=== PATIENT | male | born 1950 | race Caucasian/White ===

== ENCOUNTER 2017-07-15 23:38 | Observation (INO) | payer MEDICARE, OTHER ==
[~2017-07-15] VITALS: Ht 170.2 cm; Wt 91.9 kg
[~2017-07-15 23:38] MED LIST: ASPIRIN 32325 MG/TAB PO; ASPIRIN 81M81 MG/TA2 PO; BYSTOLIC5 MG PO; CALCIUM CARB500 MG PO; CEFTIN500 MG PO; CLARITIN 1010 MG/TAB PO; COLACE 100100 MG/CAP PO; DESYREL 50MG50 MG PO; EFFIENT10 MG PO; FISH OIL CONC1000 MG PO; FISH OIL CONCEN1 SG1 PO; FISH OIL CONCEN1 SG2 PO; FLOMAX 0.40.4 MG/CAP PO; FLOMAX0.4 MG PO; FLONASE NASAL S16 GM NS; IMDUR 30MG30 MG/TAB PO; IMDUR30 MG PO; LIPITOR 40MG TA40 MG PO; LIPITOR 80MG80 MG PO; LIPITOR20 MG PO; LISINOPRIL5 MG PO; MAALOX EXTRA S150 ML PO; MILK OF MA400 MG/52 PO; MULTIPLE VITAMI1 TAB PO; NIACIN500 M1 PO; NIASPAN500 MG PO; NITRO-DUR0.4 MG/PAT TD; NITROSTAT0.4 MG/TAB SL; NORVASC 10MG10 MG PO; OMEPRAZOLE20 MG PO; PERCOCET 325 MG1 TA2 PO; PRAVACHOL40 MG PO; PRIL40 PO; PRINIVIL5 MG PO; PROAIR HFA0.09 MG/AC IH; PROZAC 10MG10 MG PO; RT ADVAIR 128 DISKUS; SINGULAIR 110 MG/TAB PO; SUPER EPA 1201200 MG PO; TRILIPIX45 MG PO; TYLENOL 325MG325 MG PO; VENTOLIN0.09 MG IH; VITAMIN D 400400 IU PO; ZOCOR40 MG PO; ZOFRAN 4MG T4 MG/TAB PO; [UNRECOGNIZED DRUG - OTHER]
[2017-07-16] VITALS (19 sets, daily range): BP systolic 95–131; BP diastolic 46–76; PULSE 66–86; TEMP 97.1–99.5
[2017-07-16 00:04] LABS: BASO # 0.1 (0.0-0.2); BASO % 0.7 % (0.0-2.0); EOS # 0.2 (0.0-0.7); EOS % 2.3 % (0-4.0); GRAN # 3.9 (1.4-6.5); GRAN % 46.3 % (42.2-75.2); HEMATOCRIT 40.5 % (42.0-52.0); HEMOGLOBIN 13.5 g/dl (13.5-18.0); LYMPH # 3.2 (1.2-3.4); LYMPH % 38.1 % (20.0-51.0); MEAN CELL VOLUME 88 fl (80.0-100.0); MEAN CORPUSCULAR HEMOGLOBIN 29 pg (27.0-31.0); MEAN CORPUSCULAR HGB CONC 33 g/dl (33.0-37.0); MEAN PLATELET VOLUME 10.2 fl (7.4-10.4); MONO % 12.4 % (1.7-9.3); PLATELET COUNT 317 K/mm3 (130-400); RED BLOOD COUNT 4.59 M/mm3 (4.20-5.60); REDCELL DISTRIBUTION WIDTH-CV 13.5 % (11.5-14.5); WHITE BLOOD COUNT 8.3 K/mm3 (4.8-10.8)
[2017-07-16 00:09] LABS: INR 0.9 (0.8-3.0); PROTHROMBIN TIME 10.2 SECONDS (9.7-12.8)
[2017-07-16] MEDS ORDERED: PROZAC40 MG PO (00:11)
[2017-07-16 00:12] LABS: PARTIAL THROMBOPLASTIN TIME 26.7 SECONDS (26.0-37.0)
[2017-07-16] MEDS ORDERED: DESYREL DIVIDO150 M1 PO (00:12)
[2017-07-16 00:13] LABS: ADJUSTED CALCIUM 9.2 mg/dL (8.4-10.2); ALANINE AMINOTRANSFERASE 34 U/L (21-72); ALBUMIN 4.2 gm/dL (3.5-5.0); ALKALINE PHOSPHATASE 56 U/L (50-136); ANION GAP 10 mmol/L (7-16); BILIRUBIN,TOTAL 0.4 mg/dL (0.0-1.0); BLOOD UREA NITROGEN 14 mg/dL (9-20); CALCIUM 9.4 mg/dL (8.4-10.2); CARBON DIOXIDE 25 mmol/L (22-30); CHLORIDE 105 mmol/L (98-107); CREATININE, serum 0.98 mg/dL (0.66-1.25); GLUCOSE 89 mg/dL (74-106); LIPASE 145 U/L (23-300); POTASSIUM 3.8 mmol/L (3.4-5.0); SODIUM 140 mmol/L (137-145)
[2017-07-16 00:17] LABS: C-REACTIVE PROTEIN < 0.5 mg/dL (0.0-0.9)
[2017-07-16 00:22] LABS: B-TYPE NATRIURETIC PEPTIDE 43 pg/mL (0-125)
[2017-07-16 00:31] LABS: TROPONIN-I < 0.012 ng/mL (0.000-0.034)
[2017-07-16 07:42] LABS: CHOLESTEROL 108 mg/dL (120-200); HDL CHOLESTEROL 37 mg/dL; LDL CHOLESTEROL 52 mg/dL; TRIGLYCERIDE 95 mg/dL
[2017-07-17 04:04] VITALS: BP 110/57; PULSE 82; TEMP 99
[2017-07-17 07:23] VITALS: BP 120/58; PULSE 84; TEMP 97.9
[2017-07-17] MEDS ORDERED: COREG 3.123.125 MG/T PO (08:56)
== END 2017-07-17 13:00 | disposition home or self-care (01) ==
LOC: COL.ER 23:38 → MEDICAL 07-16 00:58
PROVIDERS: Emergency Medicine; Internal Medicine
DX: I95.9 Hypotension, unspecified (principal); I10 Essential (primary) hypertension; I08.1 Rheumatic disorders of both mitral and tricuspid valves; I25.10 Atherosclerotic heart disease of native coronary artery without angina pectoris; E78.5 Hyperlipidemia, unspecified; N40.0 Benign prostatic hyperplasia without lower urinary tract symptoms; J45.909 Unspecified asthma, uncomplicated; K21.9 Gastro-esophageal reflux disease without esophagitis; G47.33 Obstructive sleep apnea (adult) (pediatric); Z95.1 Presence of aortocoronary bypass graft; Z95.5 Presence of coronary angioplasty implant and graft; Z87.891 Personal history of nicotine dependence; Z82.3 Family history of stroke; Z82.49 Family history of ischemic heart disease and other diseases of the circulatory system; Z80.0 Family history of malignant neoplasm of digestive organs
CPT/HCPCS: 99239; C1760; C1769; C1894; G0378; J1650; J2250; J2270; J3010; J7030; Q9967

== ENCOUNTER → 2018-01-26 | Outpatient (CLI) | payer MEDICARE, OTHER ==
[~2018-01-26] MED LIST changes: +COREG 3.123.125 MG/T PO; +DESYREL DIVIDO150 M1 PO; +PROZAC40 MG PO
== END ==
LOC: COL.RAD 08:13
DX: R63.4 Abnormal weight loss (principal)
CPT/HCPCS: Q9967

== ENCOUNTER → 2018-02-02 | Outpatient (CLI) | payer MEDICARE, OTHER ==
[~2018-02-02] MED LIST changes: +DESYREL 100MG100 MG PO; +MOBIC15 MG PO; +OMEGA-3 1000 MG1 CAP PO; +PRILOSEC 20MG20 MG PO; +PROZAC 20MG20 MG PO; +RANEXA 500MG T500 MG PO; +RT ADVAIR HFA 1112 G IH; +RT SPIRIVA18 MCG IH
== END ==
LOC: COL.RAD 08:04
DX: R63.0 Anorexia (principal)
CPT/HCPCS: A9541

== ENCOUNTER 2018-02-04 14:16 | Observation (INO) | payer MEDICARE, OTHER ==
[~2018-02-04] VITALS: Ht 170.2 cm; Wt 85.0 kg
[~2018-02-04 14:16] MED LIST changes: -DESYREL 100MG100 MG PO; -MOBIC15 MG PO; -OMEGA-3 1000 MG1 CAP PO; -PRILOSEC 20MG20 MG PO; -PROZAC 20MG20 MG PO; -RANEXA 500MG T500 MG PO; -RT ADVAIR HFA 1112 G IH; -RT SPIRIVA18 MCG IH
[2018-02-04 16:45] VITALS: BP 184/96; PULSE 83
[2018-02-04] MEDS ORDERED: EFFIENT10 MG PO (17:23)
[2018-02-04 17:33] LABS: BASO # 0.1 (0.0-0.2); BASO % 0.6 % (0.0-2.0); EOS # 0.1 (0.0-0.7); EOS % 0.7 % (0-4.0); GRAN # 5.3 (1.4-6.5); GRAN % 64.3 % (42.2-75.2); HEMATOCRIT 42.9 % (42.0-52.0); HEMOGLOBIN 14.3 g/dl (13.5-18.0); LYMPH # 1.5 (1.2-3.4); LYMPH % 17.4 % (20.0-51.0); MEAN CELL VOLUME 90 fl (80.0-100.0); MEAN CORPUSCULAR HEMOGLOBIN 30 pg (27.0-31.0); MEAN CORPUSCULAR HGB CONC 33 g/dl (33.0-37.0); MEAN PLATELET VOLUME 11.1 fl (7.4-10.4); MONO # 1.4 (0.1-0.6); MONO % 16.8 % (1.7-9.3); PLATELET COUNT 222 K/mm3 (130-400); RED BLOOD COUNT 4.76 M/mm3 (4.20-5.60); REDCELL DISTRIBUTION WIDTH-CV 13.4 % (11.5-14.5)
[2018-02-04 17:38] LABS: ALANINE AMINOTRANSFERASE 37 U/L (21-72); ALBUMIN 3.8 gm/dL (3.5-5.0); ALKALINE PHOSPHATASE 62 U/L (50-136); ANION GAP 10 mmol/L (7-16); AST,SGOT 30 U/L (15-37); BILIRUBIN,TOTAL 0.3 mg/dL (0.0-1.0); BLOOD UREA NITROGEN 12 mg/dL (9-20); CALCIUM 8.9 mg/dL (8.4-10.2); CARBON DIOXIDE 27 mmol/L (22-30); CHLORIDE 104 mmol/L (98-107); CREATININE, serum 1.02 mg/dL (0.66-1.25); GLUCOSE 84 mg/dL (74-106); SODIUM 141 mmol/L (137-145); TOTAL PROTEIN 6.6 gm/dL (6.4-8.2)
[2018-02-04 17:47] LABS: PROTHROMBIN TIME 11.7 SECONDS (9.7-12.8)
[2018-02-04 17:50] LABS: PARTIAL THROMBOPLASTIN TIME 34.5 SECONDS (26.0-37.0); TROPONIN-I < 0.012 ng/mL (0.000-0.034)
[2018-02-04 20:55] VITALS: BP 139/74; PULSE 86; TEMP 100.2
[2018-02-04] MEDS ORDERED: LIPITOR 40MG TA40 MG PO (23:08)
[2018-02-04] MEDS ORDERED: FLOMAX 0.40.4 MG/CAP PO (23:09)
[2018-02-04] MEDS ORDERED: PRILOSEC 20MG20 MG PO (23:10)
[2018-02-04] MEDS ORDERED: SINGULAIR 110 MG/TAB PO (23:10)
[2018-02-04] MEDS ORDERED: MOBIC15 MG PO (23:11)
[2018-02-04] MEDS ORDERED: CLARITIN 1010 MG/TAB PO (23:11)
[2018-02-04] MEDS ORDERED: PROZAC 20MG20 MG PO (23:12)
[2018-02-04] MEDS ORDERED: RANEXA 500MG T500 MG PO (23:12)
[2018-02-04] MEDS ORDERED: ASPIRIN 81M81 MG/TA2 PO (23:13)
[2018-02-04] MEDS ORDERED: DESYREL 100MG100 MG PO (23:13)
[2018-02-04] MEDS ORDERED: OMEGA-3 1000 MG1 CAP PO (23:14)
[2018-02-04 23:37] VITALS: BP 129/58; PULSE 80; TEMP 99.9
[2018-02-05 01:20] LABS: MAGNESIUM 1.7 mg/dL (1.6-2.3)
[2018-02-05 01:28] LABS: COLLECTION METHOD CLEAN CATCH
[2018-02-05 01:39] LABS: MUCOUS Present /lpf; PH 7 (5-8); SQUAMOUS EPITHELIAL None Seen /hpf; URINE APPEARANCE Clear; URINE BACTERIA None Seen /hpf; URINE BILIRUBIN Negative (NEGATIVE); URINE BLOOD Negative (NEGATIVE); URINE COLOR Yellow; URINE GLUCOSE Negative (NEGATIVE); URINE KETONE Negative (NEGATIVE); URINE LEUKOCYTE ESTERASE Negative (NEGATIVE); URINE NITRATE Negative (NEGATIVE); URINE PROTEIN(semi-quant) Negative (NEGATIVE); URINE RBC 0-2 /hpf; URINE UROBILINOGEN Negative (NEGATIVE)
[2018-02-05] MEDS ORDERED: NITRO-DUR0.4 MG/PAT TD (01:43)
[2018-02-05] MEDS ORDERED: PRINIVIL5 MG PO (01:44)
[2018-02-05] MEDS ORDERED: RT SPIRIVA18 MCG IH (01:44)
[2018-02-05 01:51] LABS: TSH w REFLEX 1.98 uIU/mL (0.465-4.680)
[2018-02-05] MEDS ORDERED: RT ADVAIR HFA 1112 G IH (02:00)
[2018-02-05 03:25] VITALS: BP 119/62; PULSE 96; TEMP 98.9
[2018-02-05 06:38] LABS: BASO % 0.4 % (0.0-2.0); EOS % 0.6 % (0-4.0); GRAN # 2.6 (1.4-6.5); GRAN % 48.8 % (42.2-75.2); HEMATOCRIT 38.5 % (42.0-52.0); LYMPH # 1.6 (1.2-3.4); LYMPH % 30.3 % (20.0-51.0); MEAN CELL VOLUME 90 fl (80.0-100.0); MEAN CORPUSCULAR HEMOGLOBIN 30 pg (27.0-31.0); MEAN CORPUSCULAR HGB CONC 34 g/dl (33.0-37.0); MEAN PLATELET VOLUME 11.1 fl (7.4-10.4); MONO # 1.1 (0.1-0.6); MONO % 19.7 % (1.7-9.3); PLATELET COUNT 217 K/mm3 (130-400); REDCELL DISTRIBUTION WIDTH-CV 13.5 % (11.5-14.5)
[2018-02-05 06:55] LABS: CALCIUM 8.3 mg/dL (8.4-10.2); CREATININE, serum 0.91 mg/dL (0.66-1.25); POTASSIUM 3.2 mmol/L (3.4-5.0)
[2018-02-05 07:40] VITALS: BP 129/56; PULSE 93; TEMP 98.8
[2018-02-05 11:20] VITALS: BP 100/56; PULSE 78; TEMP 98.9
[2018-02-05] MEDS ORDERED: TAMIFLU 75MG75 MG PO (12:24)
[2018-02-05 16:00] VITALS: BP 104/50; PULSE 93; TEMP 98.7
== END 2018-02-05 17:43 | disposition home or self-care (01) ==
LOC: COL.ER 14:16 → MEDICAL 19:13
PROVIDERS: Emergency Medicine; Family Medicine; Nurse Practitioner Family
DX: R55 Syncope and collapse (principal); I95.1 Orthostatic hypotension; J11.1 Influenza due to unidentified influenza virus with other respiratory manifestations; E87.6 Hypokalemia; I25.10 Atherosclerotic heart disease of native coronary artery without angina pectoris; N40.0 Benign prostatic hyperplasia without lower urinary tract symptoms; K21.9 Gastro-esophageal reflux disease without esophagitis; G47.33 Obstructive sleep apnea (adult) (pediatric); J44.9 Chronic obstructive pulmonary disease, unspecified; J98.11 Atelectasis; Z95.1 Presence of aortocoronary bypass graft; Z95.5 Presence of coronary angioplasty implant and graft; Z79.82 Long term (current) use of aspirin; Z79.51 Long term (current) use of inhaled steroids; Z87.891 Personal history of nicotine dependence; Z82.49 Family history of ischemic heart disease and other diseases of the circulatory system; Z80.0 Family history of malignant neoplasm of digestive organs; Z82.3 Family history of stroke
CPT/HCPCS: A9585; G0378; J3475; J7030; Q9967

== ENCOUNTER → 2018-02-18 | Outpatient (CLI) | payer MEDICARE, OTHER ==
[~2018-02-18] MED LIST changes: +DESYREL 100MG100 MG PO; +MOBIC15 MG PO; +OMEGA-3 1000 MG1 CAP PO; +PRILOSEC 20MG20 MG PO; +PROZAC 20MG20 MG PO; +RANEXA 500MG T500 MG PO; +RT ADVAIR HFA 1112 G IH; +RT SPIRIVA18 MCG IH; +TAMIFLU 75MG75 MG PO
== END ==
LOC: COL.CARD 09:11
DX: R55 Syncope and collapse (principal); R51 Headache

== ENCOUNTER 2018-07-06 14:06 | Observation (INO) | payer MEDICARE, OTHER ==
[2018-07-06] VITALS (410 sets, daily range): BP systolic 136–148; BP diastolic 82; PULSE 66–71; TEMP 97.8–98; O2SAT 68–100
[~2018-07-06] VITALS: Ht 167.6 cm; Wt 84.9 kg
[~2018-07-06 14:06] MED LIST changes: +BENTYL 10MG10 MG/CAP PO; +MAG-OX 400400 MG/TAB PO; +MULTIPLE VITAMI1 TA5 PO; -PROZAC 20MG20 MG PO; +RT ADVAIR HFA 412 GM IH; -RT SPIRIVA18 MCG IH; +SPIRIVA RE2.5 MCG/Ac IH; +VOLTAREN GEL 1%1 TU TP; +ZORVOLEX18 MG; +[UNRECOGNIZED DRUG - OTHER] PO
[2018-07-06 14:24] LABS: BASO # 0.1 (0.0-0.2); BASO % 0.7 % (0.0-2.0); EOS # 0.2 (0.0-0.7); EOS % 2.3 % (0-4.0); GRAN # 3.7 (1.4-6.5); GRAN % 49.9 % (42.2-75.2); HEMATOCRIT 38.3 % (42.0-52.0); HEMOGLOBIN 12.9 g/dl (13.5-18.0); LYMPH # 2.6 (1.2-3.4); LYMPH % 35.5 % (20.0-51.0); MEAN CELL VOLUME 89 fl (80.0-100.0); MEAN CORPUSCULAR HEMOGLOBIN 30 pg (27.0-31.0); MEAN CORPUSCULAR HGB CONC 34 g/dl (33.0-37.0); MONO # 0.8 (0.1-0.6); MONO % 11.2 % (1.7-9.3); PLATELET COUNT 300 K/mm3 (130-400); REDCELL DISTRIBUTION WIDTH-CV 13.1 % (11.5-14.5)
[2018-07-06 14:28] LABS: PROTHROMBIN TIME 10.9 SECONDS (9.7-12.8)
[2018-07-06 14:39] LABS: ALANINE AMINOTRANSFERASE 32 U/L (21-72); ALBUMIN 3.9 gm/dL (3.5-5.0); ALKALINE PHOSPHATASE 49 U/L (50-136); ANION GAP 11 mmol/L (7-16); AST,SGOT 28 U/L (15-37); BILIRUBIN,TOTAL 0.7 mg/dL (0.0-1.0); BLOOD UREA NITROGEN 15 mg/dL (9-20); CALCIUM 9.2 mg/dL (8.4-10.2); CARBON DIOXIDE 25 mmol/L (22-30); CHLORIDE 104 mmol/L (98-107); CREATININE, serum 0.93 mg/dL (0.66-1.25); GLUCOSE 99 mg/dL (74-106); SODIUM 139 mmol/L (137-145); TOTAL PROTEIN 6.7 gm/dL (6.4-8.2)
[2018-07-06 14:51] LABS: TROPONIN-I < 0.012 ng/mL (0.000-0.034)
[2018-07-06] MEDS ORDERED: SINGULAIR 110 MG/TAB PO (18:14)
[2018-07-06] MEDS ORDERED: NORVASC2.5 MG PO (18:14)
[2018-07-06] MEDS ORDERED: DESYREL 100MG100 MG PO (18:17)
[2018-07-06] MEDS ORDERED: RT ADVAIR HFA 1112 G IH (20:50)
[2018-07-06] MEDS ORDERED: PROAIR HFA0.09 MG/AC IH (21:04)
[2018-07-06] MEDS ORDERED: TRILIPIX45 MG PO (21:09)
[2018-07-06] MEDS ORDERED: NATURAL IRON65 MG PO (21:11)
[2018-07-06] MEDS ORDERED: FLONASEALLERGY NS (21:14)
[2018-07-06] MEDS ORDERED: NIACIN 64 MG-501 TA1 PO (21:18)
[2018-07-07] VITALS (710 sets, daily range): BP systolic 95–136; BP diastolic 57–69; PULSE 58–67; TEMP 97.7–98.5; O2SAT 73–100
[2018-07-07 03:25] LABS: CHOLESTEROL 96 mg/dL (120-200); CHOLESTEROL RISK RATIO 3.2; HDL CHOLESTEROL 30 mg/dL; LDL CHOLESTEROL 48 mg/dL; TRIGLYCERIDE 92 mg/dL
[2018-07-07 03:42] LABS: TROPONIN-I < 0.012 ng/mL (0.000-0.034)
[2018-07-07] MEDS ORDERED: RANEXA 500MG T500 MG PO (14:19)
== END 2018-07-07 15:00 | disposition home or self-care (01) ==
LOC: COL.ER 14:06 → ICU 14:59
PROVIDERS: Family Medicine; Physician Assistant
DX: R07.9 Chest pain, unspecified (principal); I25.110 Atherosclerotic heart disease of native coronary artery with unstable angina pectoris; Z95.1 Presence of aortocoronary bypass graft; Z95.5 Presence of coronary angioplasty implant and graft; I10 Essential (primary) hypertension; E78.5 Hyperlipidemia, unspecified; R73.03 Prediabetes; F32.9 Major depressive disorder, single episode, unspecified; F41.9 Anxiety disorder, unspecified; J44.9 Chronic obstructive pulmonary disease, unspecified; G47.33 Obstructive sleep apnea (adult) (pediatric); K21.9 Gastro-esophageal reflux disease without esophagitis; N40.1 Benign prostatic hyperplasia with lower urinary tract symptoms; Z79.82 Long term (current) use of aspirin; Z87.891 Personal history of nicotine dependence
CPT/HCPCS: 99223-AI; 99232-AI; J1644; J7030

== ENCOUNTER 2018-11-16 10:49 | Inpatient (IN) | payer MEDICARE, OTHER ==
[~2018-11-16] VITALS: Ht 317.5 cm; Wt 82.7 kg
[~2018-11-16 10:49] MED LIST changes: +FLONASEALLERGY NS; +NATURAL IRON65 MG PO; +NIACIN 64 MG-501 TA1 PO; +NORVASC2.5 MG PO
[2018-11-16 11:41] LABS: BASO % 0.4 % (0.0-2.0); EOS # 0.2 (0.0-0.7); EOS % 1.9 % (0-4.0); GRAN # 6.3 (1.4-6.5); GRAN % 68.9 % (42.2-75.2); HEMATOCRIT 39.9 % (42.0-52.0); HEMOGLOBIN 13.8 g/dl (13.5-18.0); LYMPH # 1.6 (1.2-3.4); LYMPH % 17.4 % (20.0-51.0); MEAN CELL VOLUME 89 fl (80.0-100.0); MEAN CORPUSCULAR HEMOGLOBIN 31 pg (27.0-31.0); MEAN CORPUSCULAR HGB CONC 35 g/dl (33.0-37.0); MEAN PLATELET VOLUME 10.4 fl (7.4-10.4); MONO % 11.1 % (1.7-9.3); PLATELET COUNT 285 K/mm3 (130-400); RED BLOOD COUNT 4.47 M/mm3 (4.20-5.60); REDCELL DISTRIBUTION WIDTH-CV 12.8 % (11.5-14.5)
[2018-11-16 13:31] LABS: ALANINE AMINOTRANSFERASE 28 U/L (21-72); ALBUMIN 3.3 gm/dL (3.5-5.0); ALKALINE PHOSPHATASE 53 U/L (50-136); ANION GAP 4 mmol/L (7-16); AST,SGOT 43 U/L (15-37); BILIRUBIN,TOTAL 0.6 mg/dL (0.0-1.0); BLOOD UREA NITROGEN 19 mg/dL (9-20); CALCIUM 8.8 mg/dL (8.4-10.2); CARBON DIOXIDE 27 mmol/L (22-30); CHLORIDE 111 mmol/L (98-107); CREATININE, serum 0.97 mg/dL (0.66-1.25); GLUCOSE 94 mg/dL (74-106); POTASSIUM 4.3 mmol/L (3.4-5.0); SODIUM 142 mmol/L (137-145)
[2018-11-16 13:43] LABS: TROPONIN-I < 0.012 ng/mL (0.000-0.034)
[2018-11-16 16:50] VITALS: BP 155/73; PULSE 68; TEMP 97.9
[2018-11-16 16:51] VITALS: BP 143/73; PULSE 71
[2018-11-16 16:53] VITALS: BP 151/79; PULSE 75
[2018-11-16 17:43] LABS: PARTIAL THROMBOPLASTIN TIME 39.3 SECONDS (26.0-37.0)
[2018-11-16 17:55] LABS: MAGNESIUM 1.9 mg/dL (1.6-2.3)
[2018-11-16 18:18] LABS: TROPONIN-I 3 HR POST INITIAL < 0.012 ng/mL (0.000-0.034)
[2018-11-16 21:13] LABS: COLLECTION METHOD CLEAN CATCH
[2018-11-16 21:16] VITALS: BP 143/63; PULSE 73; TEMP 98.1
[2018-11-16 21:18] LABS: MUCOUS Present /lpf; PH 7 (5-8); SQUAMOUS EPITHELIAL None Seen /hpf; URINE APPEARANCE Clear; URINE BACTERIA None Seen /hpf; URINE BILIRUBIN Negative (NEGATIVE); URINE BLOOD Negative (NEGATIVE); URINE COLOR Yellow; URINE GLUCOSE 1+ (NEGATIVE); URINE KETONE Negative (NEGATIVE); URINE LEUKOCYTE ESTERASE Negative (NEGATIVE); URINE NITRATE Negative (NEGATIVE); URINE PROTEIN(semi-quant) Negative (NEGATIVE); URINE RBC 0-2 /hpf; URINE UROBILINOGEN Negative (NEGATIVE)
[2018-11-17] VITALS (7 sets, daily range): BP systolic 116–131; BP diastolic 50–76; PULSE 64–92; TEMP 98–98.5
[2018-11-17 07:27] LABS: BASO % 0.4 % (0.0-2.0); EOS # 0.1 (0.0-0.7); EOS % 1.7 % (0-4.0); GRAN # 4.4 (1.4-6.5); GRAN % 57.1 % (42.2-75.2); HEMATOCRIT 41.7 % (42.0-52.0); HEMOGLOBIN 14.1 g/dl (13.5-18.0); LYMPH # 2.3 (1.2-3.4); LYMPH % 29.2 % (20.0-51.0); MEAN CELL VOLUME 90 fl (80.0-100.0); MEAN CORPUSCULAR HEMOGLOBIN 30 pg (27.0-31.0); MEAN CORPUSCULAR HGB CONC 34 g/dl (33.0-37.0); MEAN PLATELET VOLUME 10.4 fl (7.4-10.4); MONO # 0.9 (0.1-0.6); MONO % 11.3 % (1.7-9.3); PLATELET COUNT 292 K/mm3 (130-400); RED BLOOD COUNT 4.66 M/mm3 (4.20-5.60)
[2018-11-17 07:41] LABS: ANION GAP 4 mmol/L (7-16); BLOOD UREA NITROGEN 13 mg/dL (9-20); CALCIUM 9.3 mg/dL (8.4-10.2); CARBON DIOXIDE 29 mmol/L (22-30); CHLORIDE 107 mmol/L (98-107); CREATININE, serum 1.04 mg/dL (0.66-1.25); GLUCOSE 98 mg/dL (74-106); SODIUM 140 mmol/L (137-145)
[2018-11-17 08:00] LABS: TROPONIN-I < 0.012 ng/mL (0.000-0.034)
[2018-11-18] VITALS (8 sets, daily range): BP systolic 120–149; BP diastolic 66–78; PULSE 63–85; TEMP 97.4–98.2
[2018-11-18] MEDS ORDERED: CEPHALEXIN500 M1 PO (12:21)
== END 2018-11-18 15:49 | disposition home or self-care (01) | DRG 262 ==
LOC: COL.ER 10:49 → MEDICAL 13:11
PROVIDERS: Emergency Medicine; Physician Assistant
PROC: 0JH602Z Insertion of Monitoring Device into Chest Subcutaneous Tissue and Fascia, Open Approach (ICD-10-PCS; principal; 2018-11-17)
DX: R55 Syncope and collapse (principal); R00.1 Bradycardia, unspecified; I25.10 Atherosclerotic heart disease of native coronary artery without angina pectoris; I10 Essential (primary) hypertension; Z87.891 Personal history of nicotine dependence; Z95.5 Presence of coronary angioplasty implant and graft; Z95.1 Presence of aortocoronary bypass graft; E78.5 Hyperlipidemia, unspecified; J44.9 Chronic obstructive pulmonary disease, unspecified; R73.03 Prediabetes; F41.8 Other specified anxiety disorders
CPT/HCPCS: OP; 99222-AI; 99232-AI; A9502; G0378; J1650; J2785; J7030

== ENCOUNTER → 2019-02-04 | Outpatient (CLI) | payer MEDICARE, OTHER ==
[~2019-02-04] MED LIST changes: +CEPHALEXIN500 M1 PO
== END ==
LOC: COL.RAD 14:20
DX: R41.3 Other amnesia (principal); R93.0 Abnormal findings on diagnostic imaging of skull and head, not elsewhere classified
CPT/HCPCS: A9585

== ENCOUNTER 2019-07-18 08:15 | Outpatient (RCR) | payer MEDICARE, OTHER ==
[~2019-07-18 08:15] MED LIST changes: +ARICEPT10 MG PO; +FLEXERIL 1010 MG/TAB PO; +REMERON 15M15 MG/TA1 PO; +REQUIP 0.5MG0.5 MG PO; +RT ADVAIR HFA 2312 G IH; +VITAMIN C500 MG PO; +ZYRTEC 10MG10 MG PO
== END 2019-08-11 | disposition home or self-care (01) ==
LOC: WSST
DX: M25.561 Pain in right knee (principal); M25.562 Pain in left knee; G89.29 Other chronic pain; R13.10 Dysphagia, unspecified; K21.9 Gastro-esophageal reflux disease without esophagitis; K44.9 Diaphragmatic hernia without obstruction or gangrene; E78.5 Hyperlipidemia, unspecified; Z77.090 Contact with and (suspected) exposure to asbestos; J45.40 Moderate persistent asthma, uncomplicated; G47.33 Obstructive sleep apnea (adult) (pediatric); R73.03 Prediabetes; E66.9 Obesity, unspecified

== ENCOUNTER → 2019-07-25 | Outpatient (CLI) | payer MEDICARE, OTHER | LOC: COL.RAD 08:10 | DX: K21.9 Gastro-esophageal reflux disease without esophagitis (principal) ==

== ENCOUNTER → 2019-11-24 | Outpatient (CLI) | payer MEDICARE, OTHER | LOC: COL.CARD 12:18 | DX: R42 Dizziness and giddiness (principal); R55 Syncope and collapse; F03.90 Unspecified dementia, unspecified severity, without behavioral disturbance, psychotic disturbance, mood disturbance, and anxiety ==

== ENCOUNTER 2020-01-24 06:54 | Day surgery (SDC) | payer MEDICARE, OTHER ==
[~2020-01-24] VITALS: Ht 167.6 cm; Wt 85.6 kg
[2020-01-24 07:20] VITALS: BP 125/69; PULSE 75; TEMP 97.4
[2020-01-24] MEDS ORDERED: ZESTRIL2.5 MG PO (07:38)
[2020-01-24] MEDS ORDERED: MOBIC15 MG PO (07:38)
[2020-01-24] MEDS ORDERED: ZYRTEC5 MG PO (07:39)
[2020-01-24] MEDS ORDERED: PROZAC60 MG PO (07:40)
[2020-01-24] MEDS ORDERED: ARICEPT10 MG PO (07:42)
[2020-01-24] MEDS ORDERED: NORVASC2.5 MG PO (07:43)
[2020-01-24] MEDS ORDERED: REMERON30 MG PO (07:45)
[2020-01-24] MEDS ORDERED: ANTIVERT 25MG25 MG PO (07:49)
[2020-01-24] MEDS ORDERED: URINOZINC PO (07:51)
[2020-01-24] MEDS ORDERED: MULTIPLE VITAMI1 CAP PO (07:51)
[2020-01-24] MEDS ORDERED: OMEGA-3 1000 MG1 CAP PO (07:51)
[2020-01-24] MEDS ORDERED: VITAMIN C500 MG PO (07:52)
[2020-01-24] MEDS ORDERED: NITROSTAT0.4 MG/TAB SL (07:57)
[2020-01-24] MEDS ORDERED: PRILOSEC 20MG20 MG PO (09:10)
[2020-01-24 09:20] VITALS: BP 110/67; PULSE 60; TEMP 97.6
--- NOTE | 2020-01-24 09:20 | NUR ---
Pt returns from endo procedure via cart. Pt ambulates from cart to recliner with RN assist. Monitors on and alarms set. Call light within reach. Pt requesting water. present in room. Pt denies pain or nausea. Pt drowsy but answers all questions appropriately.
[2020-01-24 09:40] VITALS: BP 125/70; PULSE 60
--- NOTE | 2020-01-24 09:40 | NUR ---
Pt more awake now and taking drink well. Pt voices no complications.
[2020-01-24 10:00] VITALS: BP 136/70; PULSE 63
[2020-01-24 10:15] VITALS: BP 136/70; PULSE 67
--- NOTE | 2020-01-24 10:23 | NUR ---
Discharge instructions given to patient and . All questions answered to their satisfaction. Handed to patient are a thank you card, discharge instructions, diagnosis information, procedural photos, and a discharge medication list.
--- NOTE | 2020-01-24 10:30 | NUR ---
Pt transferred out of hospital via wheelchair and AJ Anand assist, to private vehicle driven by .
--- NOTE | 2020-01-24 10:57 | NUR ---
Initial visit; Patient and his thanked Assisted Living Coordinator for offering spiritual care, especially prayer prior to his 'Procedure.'
== END 2020-01-24 10:30 | disposition home or self-care (01) ==
LOC: SDCO 06:54
DX: K62.5 Hemorrhage of anus and rectum (principal); D64.9 Anemia, unspecified; K57.30 Diverticulosis of large intestine without perforation or abscess without bleeding; K64.0 First degree hemorrhoids; Z86.010 Personal history of colon polyps; K21.9 Gastro-esophageal reflux disease without esophagitis; K29.30 Chronic superficial gastritis without bleeding; K26.7 Chronic duodenal ulcer without hemorrhage or perforation; K44.9 Diaphragmatic hernia without obstruction or gangrene; K29.60 Other gastritis without bleeding; K29.80 Duodenitis without bleeding; K26.9 Duodenal ulcer, unspecified as acute or chronic, without hemorrhage or perforation; I25.119 Atherosclerotic heart disease of native coronary artery with unspecified angina pectoris; F32.9 Major depressive disorder, single episode, unspecified; N40.0 Benign prostatic hyperplasia without lower urinary tract symptoms; J45.909 Unspecified asthma, uncomplicated; G47.33 Obstructive sleep apnea (adult) (pediatric); Z87.891 Personal history of nicotine dependence
CPT/HCPCS: J2704; J7120

== ENCOUNTER 2020-09-09 23:59 | Inpatient (IN) | payer MEDICARE, OTHER ==
[~2020-09-09] VITALS: Ht 167.6 cm; Wt 79.3 kg
[~2020-09-09 23:59] MED LIST changes: +ANTIVERT 25MG25 MG PO; +MULTIPLE VITAMI1 CAP PO; +PROZAC60 MG PO; +REMERON30 MG PO; +URINOZINC PO; +ZESTRIL2.5 MG PO; +ZYRTEC5 MG PO
[2020-09-10] VITALS (11 sets, daily range): BP systolic 118–149; BP diastolic 52–75; PULSE 60–72; TEMP 97.7–98.6
[2020-09-10 00:10] LABS: BASO # 0.1 (0.0-0.2); BASO % 0.7 % (0.0-2.0); EOS # 0.1 (0.0-0.7); EOS % 1.4 % (0-4.0); GRAN # 5.8 (1.4-6.5); GRAN % 70.2 % (42.2-75.2); LYMPH # 1.5 (1.2-3.4); LYMPH % 18.3 % (20.0-51.0); MEAN CELL VOLUME 86 fl (80.0-100.0); MEAN CORPUSCULAR HGB CONC 31 g/dl (33.0-37.0); MEAN PLATELET VOLUME 10.2 fl (7.4-10.4); MONO # 0.8 (0.1-0.6); PLATELET COUNT 400 K/mm3 (130-400); REDCELL DISTRIBUTION WIDTH-CV 17.5 % (11.5-14.5)
[2020-09-10 00:11] LABS: HEMATOCRIT 30.2 % (42.0-52.0); HEMOGLOBIN 9.3 g/dl (13.5-18.0); MEAN CORPUSCULAR HEMOGLOBIN 27 pg (27.0-31.0)
[2020-09-10 00:12] LABS: PROTHROMBIN TIME 11.6 SECONDS (9.7-12.8)
[2020-09-10 00:14] LABS: PARTIAL THROMBOPLASTIN TIME 26.5 SECONDS (26.0-37.0)
[2020-09-10 00:17] LABS: ALANINE AMINOTRANSFERASE 16 U/L (4-49); ALBUMIN 3.7 gm/dL (3.5-5.0); ALKALINE PHOSPHATASE 86 U/L (50-136); ANION GAP 7 mmol/L (7-16); AST,SGOT 25 U/L (15-37); BILIRUBIN,TOTAL 0.4 mg/dL (0.0-1.0); BLOOD UREA NITROGEN 24 mg/dL (9-20); CALCIUM 8.3 mg/dL (8.4-10.2); CARBON DIOXIDE 25 mmol/L (22-30); CHLORIDE 107 mmol/L (98-107); CREATININE, serum 1.43 (0.66-1.25); GLUCOSE 130 mg/dL (74-106); MAGNESIUM 2.5 mg/dL (1.6-2.3); POTASSIUM 4.2 mmol/L (3.4-5.0); SODIUM 138 mmol/L (137-145); TOTAL PROTEIN 6.5 gm/dL (6.4-8.2)
[2020-09-10 00:29] LABS: TROPONIN-I < 0.012 ng/mL (0.000-0.035)
[2020-09-10] MEDS ORDERED: TRELEGY ELLIPT1 EACH IH (01:29)
--- NOTE | 2020-09-10 01:57 | NUR ---
PT ARRIVES TO ROOM 345 VIA W/C FROM ED. IS ALERT AND ORIENTED X4. HAS SL TO RIGHT AC. TELEMETRY ON. ASSISTED TO BED WITH STANDBY. WILL BE FALL PRECAUTIONS D/T SYNCOPAL EPISODES X2 AT HOME AND POSITIVE ORTHOSTATICS.
--- NOTE | 2020-09-10 02:30 | NUR ---
IVF INFUSING TO RIGHT AC WITHOUT REDNESS OR SWELLING. IS NPO.
--- NOTE | 2020-09-10 05:45 | NUR ---
PT HAS HAD NO STOOLS THIS SHIFT. REMAINS NPO.
[2020-09-10 06:51] LABS: RETIC # 0.07 M/mm3 (0.02-0.16); RETIC % 2.1 % (0.5-3.52)
[2020-09-10 06:52] LABS: HEMATOCRIT 30.2 % (42.0-52.0); HEMOGLOBIN 9.4 g/dl (13.5-18.0)
[2020-09-10 07:05] LABS: ANION GAP 5 mmol/L (7-16); BLOOD UREA NITROGEN 25 mg/dL (9-20); CALCIUM 8.5 mg/dL (8.4-10.2); CARBON DIOXIDE 24 mmol/L (22-30); CHLORIDE 109 mmol/L (98-107); CREATININE, serum 1.48 (0.66-1.25); GLUCOSE 99 mg/dL (74-106); POTASSIUM 4.3 mmol/L (3.4-5.0); SODIUM 139 mmol/L (137-145)
[2020-09-10 07:17] LABS: TROPONIN-I 6 HR POST INITIAL < 0.012 ng/mL (0.000-0.034)
[2020-09-10 07:34] LABS: TSH w REFLEX 0.984 uIU/mL (0.465-4.680)
--- NOTE | 2020-09-10 07:53 | NUR ---
Patient down by prasad for endoscopy
[2020-09-10 07:54] LABS: IRON,SERUM 21 ug/dL (35-150)
[2020-09-10 08:03] LABS: TOTAL IRON BINDING CAPACITY 328 ug/dL (261-462)
--- NOTE | 2020-09-10 08:44 | NUR ---
Patient up from endoscopy, alert and oriented x 2. Assessment complete. VSS. Post op fluids infusing per orders. Denies pain at this time. Denies further needs at this time. States he has not had a BM since being admitted to the hospital. Denies further needs at this time.
--- NOTE | 2020-09-10 10:57 | NUR ---
SW met with the patient to discuss discharge plan. The patient lives in [place] with his , Hiren (ph#[phone]). He reports independence with ADLs and does not have any DME. The patient's PCP is Dr. Venecia Hinson and he receives his medications at [facility], and through [facility]. He reports no difficulties obtaining his meds. The patient does not have a DPOA-HC in EMR, but he states that he believes he has one completed and that his is his DPOA-HC. The patient plans to return home with his upon discharge. SW contacted the patient's , Hiren, to review d/c plan. Hiren reports that she has no concerns about the patient returning back home with her upon discharge. She just wants to have figured out why the patient keeps having syncopal episodes. SW to continue to follow as needed.
--- NOTE | 2020-09-10 11:13 | NUR ---
First visit from the breakfast cook. No needs right now.
[2020-09-10 17:31] LABS: FOLATE (FOLIC ACID) 15.5 ng/mL (7.0-31.4)
[2020-09-10 17:39] LABS: HEMATOCRIT 29.1 % (42.0-52.0)
--- NOTE | 2020-09-10 18:47 | NUR ---
Patient has done well throughout the day. Has been up ambulating in room, up to recliner throughout the day. Denies pain through the day. Patient states he has had dark bloody stools today, educated patient to allow staff to visualize before flushing. Tolerating diet without complications. Denies further needs at this time. Will report off to shift production associate.
--- NOTE | 2020-09-10 19:05 | NUR ---
Received report from AJ Pichardo. Pt has his call light within reach.
[2020-09-11 04:17] VITALS: BP 122/65; PULSE 64; TEMP 98.1
--- NOTE | 2020-09-11 06:26 | NUR ---
Pt has slept well all night. Pt did tell me this morning that he went to the bathroom and had a bowel movement that was dark. Pt has been tolerating fluids throughout the night. I did contact Nina the hospitalist at the beginning of the shift because the pt was INt'ed. She was ok with pt being INT and order was placed at this time. Pt has his call light within reach.
--- NOTE | 2020-09-11 07:22 | NUR ---
Dr. Luis in to see patient.
[2020-09-11 07:24] LABS: HEMATOCRIT 28.6 % (42.0-52.0)
[2020-09-11 07:35] VITALS: BP 142/70; PULSE 57; TEMP 98.6
[2020-09-11 07:35] LABS: CALCIUM 8.6 mg/dL (8.4-10.2); CREATININE, serum 1.42 (0.66-1.25); MAGNESIUM 2.3 mg/dL (1.6-2.3); POTASSIUM 4.2 mmol/L (3.4-5.0)
--- NOTE | 2020-09-11 08:00 | NUR ---
Patient in bed resting. Alert and oriented x 3. Assessment complete. Denies pain at this time. Patient states he has a couple of dark bloody stools throughout the night. Denies further needs at this time.
[2020-09-11 11:43] VITALS: BP 111/62; PULSE 71; TEMP 98.1
[2020-09-11 15:50] VITALS: BP 136/63; PULSE 57; TEMP 97.5
[2020-09-11 16:15] LABS: HEMATOCRIT 31.4 % (42.0-52.0); HEMOGLOBIN 9.8 g/dl (13.5-18.0)
--- NOTE | 2020-09-11 16:41 | NUR ---
Contacted hospitalist, patient has elevated D-dimer. Verified new medication orders.
--- NOTE | 2020-09-11 18:15 | NUR ---
Patient doing well, minimal needs. Has been up ambulating in room throughout the day. Showered independently this AM. Fluids restarted per orders. Patient denies further needs at this time. Will report off to evening or night nurse supervisor.
[2020-09-11 19:20] VITALS: BP 111/59; PULSE 64; TEMP 98.1
--- NOTE | 2020-09-11 20:00 | NUR ---
PT IN BED. IS ALERT AND ORIENTED X4. HAS IVF INFUSING TO RIGHT AC WITHOUT REDNESS OR SWELLING. DENIES PAIN. VOIDING WITHOUT PROBLEM, YELLOW URINE. TAKES HS MEDS. PUDDING PROVIDED.
[2020-09-11 23:44] VITALS: BP 131/64; PULSE 65; TEMP 98.5
--- NOTE | 2020-09-12 02:39 | NUR ---
PT IV CONTINUED TO OCCLUDE, LEAKING. NEW IV SITE TO RIGHT WRIST PLACED, #20 INSYTE ON SECOND ATTEMPT. TOLERATED WITHOUT PROBLEM. REMOVED SL FROM RIGHT AC, ANGIOCATH INTACT.
[2020-09-12 04:00] VITALS: BP 133/66; PULSE 62; TEMP 97.6
--- NOTE | 2020-09-12 05:40 | NUR ---
TAKES AM MED. DENIES ANY STOOLS THIS SHIFT.
--- NOTE | 2020-09-12 05:42 | NUR ---
TELE CALLED, PT HR DROPPED TO 38 BPM THEN BACK UP TO 50-60'S. WOKE PT UP, DENIES CHEST PAIN, REPORTS HIS LOOP RECORDER HAS PICKED UP LOW RATES IN THE 30'S AT HOME.
[2020-09-12 06:47] LABS: BASO # 0.1 (0.0-0.2); BASO % 0.9 % (0.0-2.0); EOS # 0.3 (0.0-0.7); EOS % 4.2 % (0-4.0); GRAN # 3.2 (1.4-6.5); GRAN % 49.4 % (42.2-75.2); LYMPH # 2.2 (1.2-3.4); LYMPH % 33.8 % (20.0-51.0); MEAN CELL VOLUME 87 fl (80.0-100.0); MEAN CORPUSCULAR HEMOGLOBIN 27 pg (27.0-31.0); MEAN CORPUSCULAR HGB CONC 31 g/dl (33.0-37.0); MEAN PLATELET VOLUME 10.6 fl (7.4-10.4); MONO # 0.8 (0.1-0.6); MONO % 11.5 % (1.7-9.3); PLATELET COUNT 379 K/mm3 (130-400); RED BLOOD COUNT 3.68 M/mm3 (4.20-5.60); REDCELL DISTRIBUTION WIDTH-CV 17.2 % (11.5-14.5)
[2020-09-12 07:03] LABS: CALCIUM 8.8 mg/dL (8.4-10.2); CREATININE, serum 1.3 (0.66-1.25)
[2020-09-12 07:54] VITALS: BP 131/60; PULSE 63; TEMP 97.8
--- NOTE | 2020-09-12 09:32 | NUR ---
Patient resting in bed. He had a shower this morning. Only complaint is that he feels tired this morning.
[2020-09-12] MEDS ORDERED: LIPITOR 80MG80 MG PO (10:18)
[2020-09-12] MEDS ORDERED: PROTONIX 40MG T40 MG PO (10:22)
[2020-09-12] MEDS ORDERED: CARAFATE 1GM1 G PO (10:22)
[2020-09-12] MEDS ORDERED: FLORINEF ACETA0.1 MG PO (10:22)
--- NOTE | 2020-09-12 12:49 | NUR ---
Patient to take patient home. Discharge orders obtained. Patient given all discharge teaching. Int DC. We reviewed new medication to sweet pickled fruit maker at [facility] pharmacy. We reviewed lase dose take & medication to no longer take. he veriifed understanding.We discussed follow up appt scheduled with PCP & cardiology. Voicemail left with Neuro office. Patient has lunch did well. He took a shower this am & ambulated halls with therapy without problems. Patietn wheeled out with all belongings, denies questions or concerns.
== END 2020-09-12 12:10 | disposition home or self-care (01) | DRG 378 ==
LOC: COL.ER 23:59 → SURG 09-10 00:53
PROVIDERS: Emergency Medicine; Internal Medicine Gastroenterology; Physician Assistant; Student in an Organized Health Care Education/Training Program; ADMIT Internal Medicine
PROC: 0DB78ZX Excision of Stomach, Pylorus, Via Natural or Artificial Opening Endoscopic, Diagnostic (ICD-10-PCS; principal; 2020-09-10 07:30)
DX: K29.01 Acute gastritis with bleeding (principal); N17.9 Acute kidney failure, unspecified; K92.2 Gastrointestinal hemorrhage, unspecified; R55 Syncope and collapse; I25.10 Atherosclerotic heart disease of native coronary artery without angina pectoris; I10 Essential (primary) hypertension; I65.29 Occlusion and stenosis of unspecified carotid artery; K21.00 Gastro-esophageal reflux disease with esophagitis, without bleeding; K21.9 Gastro-esophageal reflux disease without esophagitis; K26.9 Duodenal ulcer, unspecified as acute or chronic, without hemorrhage or perforation; K44.9 Diaphragmatic hernia without obstruction or gangrene; I95.1 Orthostatic hypotension; D64.9 Anemia, unspecified; G47.33 Obstructive sleep apnea (adult) (pediatric); N40.0 Benign prostatic hyperplasia without lower urinary tract symptoms; J45.909 Unspecified asthma, uncomplicated; G47.00 Insomnia, unspecified; F03.90 Unspecified dementia, unspecified severity, without behavioral disturbance, psychotic disturbance, mood disturbance, and anxiety; F41.9 Anxiety disorder, unspecified; F32.9 Major depressive disorder, single episode, unspecified; E86.0 Dehydration; Z99.81 Dependence on supplemental oxygen; E78.5 Hyperlipidemia, unspecified; Z79.82 Long term (current) use of aspirin; Z95.1 Presence of aortocoronary bypass graft; Z95.5 Presence of coronary angioplasty implant and graft; Z87.891 Personal history of nicotine dependence; Z95.818 Presence of other cardiac implants and grafts
CPT/HCPCS: 99222-AI; 99233-AI; 99239; C9113; J2704; J7030

== ENCOUNTER → 2021-04-17 | Outpatient (CLI) | payer MEDICARE, OTHER ==
[~2021-04-17] MED LIST changes: +ASPIRIN E.C. 8181 MG PO; +CARAFATE 1GM1 G PO; +FLORINEF ACETA0.1 MG PO; +PROTONIX 40MG T40 MG PO; +TRELEGY ELLIPT1 EACH IH
== END ==
LOC: COL.RAD 13:29
DX: F03.90 Unspecified dementia, unspecified severity, without behavioral disturbance, psychotic disturbance, mood disturbance, and anxiety (principal); G93.89 Other specified disorders of brain

== ENCOUNTER 2021-05-21 08:32 | Outpatient (CLI) | payer MEDICARE, OTHER ==
[2021-05-21] VITALS (7 sets, daily range): BP systolic 137–160; BP diastolic 69–77; PULSE 58–63
[~2021-05-21] VITALS: Ht 167.6 cm; Wt 72.3 kg
--- NOTE | 2021-05-21 09:03 | NUR ---
PT DID NOT BRING HIS MED LIST. HAS THE MED LIST AND PT DOESNT REMEMBER THE CELL NUMBER
--- NOTE | 2021-05-21 09:45 | NUR ---
Report from Rossana ROCHA. Transferred from Radiology by bed. Bandaid to middle back CD&I, no red top lab ordered. VSS. Pt denies pain and needs at this time
[2021-05-21 10:27] LABS: GLUCOSE,CSF 54 mg/dL (40-70); TOTAL PROTEIN,CSF 54 mg/dL (15-45)
[2021-05-21 11:49] LABS: CSF APPEARANCE CLEAR; CSF COLOR COLORLESS; CSF MONONUCLEAR 100 % (70-100); CSF POLYMORPHONUCLEAR 0 % (0-6); CSF RBC < 1 /mm3 (0-0)
== END 2021-05-21 11:43 | disposition home or self-care (01) ==
LOC: COL.RAD 08:32
PROVIDERS: Psychiatry & Neurology Neurology
DX: G93.89 Other specified disorders of brain (principal); G31.84 Mild cognitive impairment of uncertain or unknown etiology

== ENCOUNTER → 2021-06-18 | Outpatient (CLI) | payer MEDICARE, OTHER | LOC: COL.CARD 06-03 13:00 | DX: F03.90 Unspecified dementia, unspecified severity, without behavioral disturbance, psychotic disturbance, mood disturbance, and anxiety (principal); R55 Syncope and collapse; G93.89 Other specified disorders of brain ==

== ENCOUNTER → 2021-09-03 | Outpatient (CLI) | payer MEDICARE, OTHER | LOC: COL.RAD 10:30 | DX: G91.1 Obstructive hydrocephalus (principal); Z86.59 Personal history of other mental and behavioral disorders ==

== ENCOUNTER 2021-09-26 12:45 | Outpatient (RCR) | payer MEDICARE, OTHER | END 2021-09-29 | disposition home or self-care (01) | LOC: WSPT | DX: M17.0 Bilateral primary osteoarthritis of knee (principal); I10 Essential (primary) hypertension ==

== ENCOUNTER 2021-10-21 11:15 | Outpatient (RCR) | payer MEDICARE, OTHER | END 2021-10-23 | disposition home or self-care (01) | LOC: WSST | DX: G30.1 Alzheimer's disease with late onset (principal); F02.80 Dementia in other diseases classified elsewhere, unspecified severity, without behavioral disturbance, psychotic disturbance, mood disturbance, and anxiety; G93.89 Other specified disorders of brain; R55 Syncope and collapse; R26.89 Other abnormalities of gait and mobility ==

== ENCOUNTER 2021-11-27 11:15 | Outpatient (RCR) | payer MEDICARE, OTHER | END 2021-11-29 | disposition home or self-care (01) | LOC: WSST | DX: R48.9 Unspecified symbolic dysfunctions (principal); R41.3 Other amnesia; G30.1 Alzheimer's disease with late onset; F02.80 Dementia in other diseases classified elsewhere, unspecified severity, without behavioral disturbance, psychotic disturbance, mood disturbance, and anxiety ==

== ENCOUNTER 2021-12-25 10:30 | Outpatient (RCR) | payer MEDICARE, OTHER | END 2021-12-30 | LOC: MKS.ESL.PT | DX: R13.10 Dysphagia, unspecified (principal) ==

== ENCOUNTER 2021-12-25 11:15 | Outpatient (RCR) | payer MEDICARE, OTHER | END 2021-12-30 | disposition still patient (30) | LOC: WSST | DX: R41.3 Other amnesia (principal); R48.9 Unspecified symbolic dysfunctions; G30.1 Alzheimer's disease with late onset; F02.80 Dementia in other diseases classified elsewhere, unspecified severity, without behavioral disturbance, psychotic disturbance, mood disturbance, and anxiety ==

== ENCOUNTER 2022-01-22 10:30 | Outpatient (RCR) | payer MEDICARE, OTHER | END 2022-01-27 | disposition home or self-care (01) | LOC: MKS.ESL.PT | DX: R41.3 Other amnesia (principal); R48.9 Unspecified symbolic dysfunctions; R26.89 Other abnormalities of gait and mobility ==

== ENCOUNTER 2022-01-22 11:15 | Outpatient (RCR) | payer MEDICARE, OTHER | END 2022-01-27 | disposition home or self-care (01) | LOC: WSST | DX: R48.9 Unspecified symbolic dysfunctions (principal); R41.3 Other amnesia; G30.1 Alzheimer's disease with late onset; F02.80 Dementia in other diseases classified elsewhere, unspecified severity, without behavioral disturbance, psychotic disturbance, mood disturbance, and anxiety ==

== ENCOUNTER 2022-02-26 10:30 | Outpatient (RCR) | payer MEDICARE, OTHER | END 2022-02-27 | disposition home or self-care (01) | LOC: MKS.ESL.PT | DX: G30.1 Alzheimer's disease with late onset (principal); R48.9 Unspecified symbolic dysfunctions ==

== ENCOUNTER 2022-02-26 11:15 | Outpatient (RCR) | payer MEDICARE, OTHER | END 2022-02-27 | disposition home or self-care (01) | LOC: WSST | DX: R41.3 Other amnesia (principal); R48.9 Unspecified symbolic dysfunctions; G30.1 Alzheimer's disease with late onset; F02.80 Dementia in other diseases classified elsewhere, unspecified severity, without behavioral disturbance, psychotic disturbance, mood disturbance, and anxiety ==

== ENCOUNTER 2022-03-26 10:30 | Outpatient (RCR) | payer MEDICARE, OTHER | END 2022-03-29 | disposition home or self-care (01) | LOC: MKS.ESL.PT | DX: G30.1 Alzheimer's disease with late onset (principal) ==

== ENCOUNTER 2022-03-26 11:15 | Outpatient (RCR) | payer MEDICARE, OTHER | END 2022-03-29 | disposition home or self-care (01) | LOC: WSST | DX: R41.3 Other amnesia (principal); R48.9 Unspecified symbolic dysfunctions ==

== ENCOUNTER 2022-04-16 15:11 | Emergency (ER) | payer MEDICARE, OTHER ==
[~2022-04-16] VITALS: Ht 172.7 cm; Wt 77.3 kg
[2022-04-16 15:22] VITALS: TEMP 99.4
[2022-04-16 15:44] LABS: BASO % 0.6 % (0.0-2.0); EOS # 0.2 K/mm3 (0.0-0.7); EOS % 3.1 % (0.0-4.0); HEMATOCRIT 41.2 % (42.0-52.0); HEMOGLOBIN 13.6 g/dl (13.5-18.0); LYMPH # 2.6 K/mm3 (1.2-3.4); LYMPH % 39.2 % (20.0-51.0); MEAN CELL VOLUME 89 fl (80.0-100.0); MEAN CORPUSCULAR HEMOGLOBIN 29 pg (27-31); MEAN CORPUSCULAR HGB CONC 33 g/dl (33.0-37.0); MONO # 0.8 K/mm3 (0.1-0.6); PLATELET COUNT 260 K/mm3 (130-400); RED BLOOD COUNT 4.63 M/mm3 (4.20-5.60); REDCELL DISTRIBUTION WIDTH-CV 12.9 % (11.5-14.5)
[2022-04-16 15:52] LABS: INR 1.1 (0.8-3.0); PROTHROMBIN TIME 12.2 SECONDS (9.7-12.8)
[2022-04-16 16:09] LABS: ALANINE AMINOTRANSFERASE 13 U/L (0-55); ALBUMIN 3.6 gm/dL (3.4-4.8); ALKALINE PHOSPHATASE 46 U/L (40-150); ANION GAP 6 mmol/L (7-16); AST,SGOT 16 U/L (5-34); BILIRUBIN,TOTAL 0.5 mg/dL (0.2-1.2); BLOOD UREA NITROGEN 17 mg/dL (8-26); CALCIUM 8.9 mg/dL (8.4-10.2); CARBON DIOXIDE 26 mmol/L (23-31); CHLORIDE 108 mmol/L (98-107); CREATININE, serum 1.12 mg/dL (0.72-1.25); GLUCOSE 88 mg/dL (70-99); SODIUM 140 mmol/L (136-145); TOTAL PROTEIN 6.3 gm/dL (6.2-8.1)
[2022-04-16 16:15] LABS: TROPONIN-I < 0.010 ng/mL (0.00-0.033)
[2022-04-16 16:37] LABS: COLLECTION METHOD CLEAN CATCH
[2022-04-16 16:45] LABS: MUCOUS Present (NOT PRESENT); PH 7 (5-8); SQUAMOUS EPITHELIAL None Seen /hpf (0-10); URINE APPEARANCE Clear (CLEAR/HAZY); URINE BACTERIA None Seen /hpf (NONE SEEN); URINE BILIRUBIN Negative (NEGATIVE); URINE BLOOD Negative (NEGATIVE); URINE COLOR Yellow (YELLOW); URINE GLUCOSE Negative (NEGATIVE); URINE KETONE Negative (NEGATIVE); URINE LEUKOCYTE ESTERASE Negative (NEGATIVE); URINE NITRATE Negative (NEGATIVE); URINE PROTEIN(semi-quant) Negative (NEGATIVE); URINE RBC 0-2 /hpf (0-2); URINE UROBILINOGEN Negative (NEGATIVE)
[2022-04-16 18:02] VITALS: BP 146/56; PULSE 65
== END 2022-04-16 18:07 | disposition home or self-care (01) ==
LOC: COL.ER 15:11
PROVIDERS: Emergency Medicine
DX: R29.810 Facial weakness (principal); R00.1 Bradycardia, unspecified; Z87.891 Personal history of nicotine dependence; Z95.1 Presence of aortocoronary bypass graft; Z95.5 Presence of coronary angioplasty implant and graft; Z95.0 Presence of cardiac pacemaker; Z79.01 Long term (current) use of anticoagulants
CPT/HCPCS: J7030

== ENCOUNTER 2022-04-23 10:30 | Outpatient (RCR) | payer MEDICARE, OTHER | END 2022-04-29 | disposition home or self-care (01) | LOC: MKS.ESL.PT | DX: G30.1 Alzheimer's disease with late onset (principal) ==

== ENCOUNTER 2022-04-23 11:15 | Outpatient (RCR) | payer MEDICARE, OTHER | END 2022-04-29 | disposition home or self-care (01) | LOC: WSST | DX: R41.3 Other amnesia (principal); R48.9 Unspecified symbolic dysfunctions; G30.1 Alzheimer's disease with late onset; F02.80 Dementia in other diseases classified elsewhere, unspecified severity, without behavioral disturbance, psychotic disturbance, mood disturbance, and anxiety ==

== ENCOUNTER 2022-05-07 10:30 | Outpatient (RCR) | payer MEDICARE, OTHER | END 2022-05-29 | disposition home or self-care (01) | LOC: MKS.ESL.PT | DX: R26.89 Other abnormalities of gait and mobility (principal) ==

== ENCOUNTER 2022-05-20 10:15 | Outpatient (RCR) | payer MEDICARE, OTHER | END 2022-05-29 | disposition home or self-care (01) | LOC: WSST | DX: R48.9 Unspecified symbolic dysfunctions (principal); R41.3 Other amnesia; G30.1 Alzheimer's disease with late onset; F02.80 Dementia in other diseases classified elsewhere, unspecified severity, without behavioral disturbance, psychotic disturbance, mood disturbance, and anxiety ==

== ENCOUNTER 2022-08-13 10:56 | Emergency (ER) | payer MEDICARE, OTHER ==
[~2022-08-13] VITALS: Ht 165.1 cm; Wt 80.0 kg
[2022-08-13] MEDS ORDERED: NORVASC2.5 MG PO (11:24)
[2022-08-13] MEDS ORDERED: ASPIRIN 81M81 MG/TA2 PO (11:24)
[2022-08-13] MEDS ORDERED: FERROUS SU325 MG/TAB PO (11:25)
[2022-08-13] MEDS ORDERED: ARICEPT ODT10 MG PO (11:25)
[2022-08-13] MEDS ORDERED: LIPITOR 40MG TA40 MG PO (11:25)
[2022-08-13] MEDS ORDERED: PROZAC 20MG20 MG PO (11:26)
[2022-08-13] MEDS ORDERED: FLORINEF ACETA0.1 MG PO (11:26)
[2022-08-13] MEDS ORDERED: EPA FISH OIL1 SGL PO (11:26)
[2022-08-13] MEDS ORDERED: SYNTHROID 0.0.025 MG PO (11:27)
[2022-08-13] MEDS ORDERED: LAMICTAL 100MG100 MG PO (11:27)
[2022-08-13] MEDS ORDERED: NAMENDA 10MG TA10 MG PO (11:27)
[2022-08-13] MEDS ORDERED: MULTI VITAMINS1 TAB PO (11:28)
[2022-08-13] MEDS ORDERED: NITRO-DUR0.6 MG/PAT TD (11:29)
[2022-08-13] MEDS ORDERED: NITROSTAT0.3 MG SL (11:29)
[2022-08-13] MEDS ORDERED: PROTONIX 40MG T40 MG PO (11:29)
[2022-08-13] MEDS ORDERED: CARAFATE 1GM1 G PO (11:30)
[2022-08-13] MEDS ORDERED: FLOMAX 0.40.4 MG/CAP PO (11:30)
[2022-08-13] MEDS ORDERED: VITAMIN C500 MG PO (11:31)
[2022-08-13] MEDS ORDERED: TRELEGY ELLIPT1 EACH IH (11:31)
[2022-08-13 11:43] LABS: BASO # 0.1 K/mm3 (0.0-0.2); BASO % 0.7 % (0.0-2.0); EOS # 0.1 K/mm3 (0.0-0.7); EOS % 1.4 % (0.0-4.0); GRAN # 4.3 K/mm3 (1.4-6.5); HEMATOCRIT 42.1 % (42.0-52.0); HEMOGLOBIN 14.2 g/dl (13.5-18.0); LYMPH # 1.6 K/mm3 (1.2-3.4); MEAN CELL VOLUME 87 fl (80.0-100.0); MEAN CORPUSCULAR HEMOGLOBIN 29 pg (27-31); MEAN CORPUSCULAR HGB CONC 34 g/dl (33.0-37.0); MEAN PLATELET VOLUME 10.6 fl (7.4-10.4); MONO % 13.8 % (1.7-9.3); PLATELET COUNT 309 K/mm3 (130-400); RED BLOOD COUNT 4.83 M/mm3 (4.20-5.60); REDCELL DISTRIBUTION WIDTH-CV 13.1 % (11.5-14.5)
[2022-08-13 12:05] LABS: COLLECTION METHOD CLEAN CATCH
[2022-08-13 12:09] LABS: ALANINE AMINOTRANSFERASE 34 U/L (0-55); ALBUMIN 3.9 gm/dL (3.4-4.8); ALKALINE PHOSPHATASE 75 U/L (40-150); ANION GAP 10 mmol/L (7-16); AST,SGOT 40 U/L (5-34); BILIRUBIN,TOTAL 0.4 mg/dL (0.2-1.2); BLOOD UREA NITROGEN 15 mg/dL (8-26); CALCIUM 9.9 mg/dL (8.4-10.2); CARBON DIOXIDE 24 mmol/L (23-31); CHLORIDE 107 mmol/L (98-107); CREATININE, serum 1.23 mg/dL (0.72-1.25); GLUCOSE 100 mg/dL (70-99); POTASSIUM 5.2 mmol/L (3.5-4.5); SODIUM 141 mmol/L (136-145); TOTAL PROTEIN 7.2 gm/dL (6.2-8.1)
[2022-08-13 12:13] LABS: ACETAMINOPHEN < 1.0 ug/mL (10-30); ALCOHOL(ethanol),MEDICAL < 10 mg/dL (0-10); SALICYLATE < 5.0 mg/dL (15.0-30.0)
[2022-08-13 12:15] LABS: TROPONIN-I 0.011 ng/mL (0.00-0.033)
[2022-08-13 12:19] LABS: MUCOUS Present (NOT PRESENT); SQUAMOUS EPITHELIAL None Seen /hpf (0-10); URINE BACTERIA None Seen /hpf (NONE SEEN); URINE RBC 0-2 /hpf (0-2)
[2022-08-13 12:22] LABS: PH 6.5 (5.0-8.5); URINE APPEARANCE Clear (CLEAR/HAZY); URINE BLOOD Negative (NEGATIVE); URINE COLOR Yellow (YELLOW); URINE GLUCOSE Negative (NEGATIVE); URINE KETONE Negative (NEGATIVE); URINE NITRATE Negative (NEGATIVE); URINE PROTEIN(semi-quant) Negative (NEGATIVE); URINE UROBILINOGEN 0.2 E.U/dL (0.2-1.0)
[2022-08-13 12:23] LABS: TRICYCLIC ANTIDEPRESS URINE NEGATIVE
[2022-08-14 19:05] VITALS: BP 146/68; PULSE 66; TEMP 98.2
== END 2022-08-14 19:07 ==
LOC: COL.ER 10:56
PROVIDERS: Emergency Medicine
DX: R41.82 Altered mental status, unspecified (principal); R44.3 Hallucinations, unspecified; E87.5 Hyperkalemia; Z87.891 Personal history of nicotine dependence; Z20.822 Contact with and (suspected) exposure to COVID-19